=== PATIENT | female | born 1990 | race Caucasian/White ===

== ENCOUNTER 2016-07-22 15:40 | Emergency (ER) | payer MEDICAID, OTHER ==
[2016-07-22 16:11] LABS: Hematocrit 36.6 % (37.0-47.0); Hemoglobin 12.1 gm/dL (12.5-16.0); Mean Cell Volume 85.5 fl (78-100); Mean Corpuscular Hemoglobin 28.3 pg (27-31); Mean Corpuscular Hgb Conc 33.1 g/dl (32-36); Mean Platelet Volume 9.7 fl (6.0-9.5); Neutrophil # 4.6 K/mm3 (1.3-6.0); Platelet Count 273 K/mm3 (150-450); Red Blood Count 4.28 M/mm3 (4.2-5.4); Red Cell Distribution Width 13.9 % (11.5-14.0); White Blood Count 7.6 K/mm3 (4.0-10.5)
[2016-07-22 16:25] LABS: Albumin * 3.6 gm/dl (3.4-5.0); Anion Gap 14.5 mmol/L (6.8-13.8); BUN/Creatinine Ratio 11.3 (9.0-21.6); Bilirubin, Total 0.3 mg/dL (0.0-1.1); Ca. Corrected For Albumin 8.9 mg/dL (8.4-10.2); Calcium * 8.9 mg/dL (7.9-10.9); Carbon Dioxide 23.3 mmol/L (24-32.6); Potassium 3.8 mmol/L (3.4-4.6); Total Protein 7.2 gm/dL (6.2-8.2)
--- OUTSIDE RECORDS SUMMARY | 2016-07-22 16:31 | XMS REPORT | Continuity of Care Document ---
:1990 Author Organization [facility] ([facility]) Address [address] [place] [address] Phone [phone] Care Team Providers Name Role Phone Provider, No-Primary Care Primary Care Provider Unavailable Source Comments This disclosure is being made pursuant to the Care Everywhere program, applicable federal and state laws, and may not contain all informaitonavailable regarding this patient.[facility] ([facility]) Active Allergies and Adverse Reactions No Known Allergies Current Medications Prescription Sig. Disp. Refills Start Date End Date Status VIT/IRON Take by mouth daily. Active FUMARATE/FA ( PO) ferrous sulfate Take 325 mg by mouth Active (IRON) 325 mg (65 mg daily. iron) XR capsule magnesium 250 mg Take 250 mg by mouth Active tablet daily. albuterol (PROAIR Use 2 Puffs by Active HFA) 90 mcg/Actuation inhalation every 6 inhaler hours as needed. docusate 100 mg Take 1 Cap by mouth 2 60 Cap 3 01/12/2013 Active capsule times daily as needed. Indications: CONSTIPATION oxyCODONE-acetaminoph Take 1 Tab by mouth 60 Tab 0 01/12/2013 Active en 5-325 mg per every 4 hours as tablet needed. Do Not exceed 4000 mg of acetaminophen per 24 hours. Indications: PAIN ibuprofen 600 mg Take 1 Tab by mouth 60 Tab 3 01/12/2013 Active tablet every 6 hours as needed. Indications: PAIN SERTraline 50 mg Take 1 Tab by mouth 30 Tab 11 01/12/2013 Active tablet daily. Indications: MAJOR DEPRESSIVE DISORDER Active Problems Problem Noted Date with history of 01/12/2013 Hx of major depression 01/12/2013 S/P section 01/11/2013 Migraine 01/10/2013 Iron deficiency anemia, unspecified 01/10/2013 Asthma 01/10/2013 Rubella nonimmune status, delivered, current hospitalization 01/10/2013 Social History Tobacco Use Types Packs/Day Years Used Date Former Smoker Quit: 01/29/2012 Alcohol Use Drinks/Week oz/Week Comments No Last Filed Vital Signs Vital Sign Reading Time Taken Blood Pressure 114/66 01/12/2013 8:00 AM CDT Pulse 84 01/12/2013 8:00 AM CDT Temperature 36.3 C (97.3 F) 01/12/2013 8:00 AM CDT Respiratory Rate 18 01/12/2013 8:00 AM CDT Height 1.575 m (5' 2") 10/28/2012 8:18 AM CDT Weight 71 kg (156 lb 8.4 oz) 10/28/2012 8:18 AM CDT Body Mass Index 28.62 10/28/2012 8:18 AM CDT Oxygen Saturation 98% 01/10/2013 4:05 PM CDT Plan of Care Health Maintenance Due Date Last Done Comments Hepatitis B Vaccine (1 of 3 - Primary Series) 1990 HPV Vaccine (1 of 3 - Female/Unknown 3 Dose Series) 12/11/2002 Tdap Vaccine 12/11/2002 Cervical Cancer Screening 12/11/2009 Lipid Disorder Screening 12/11/2009 MMR Vaccine 12/11/2009 Td Vaccine 12/11/2009 Varicella Vaccine (1 of 2 - Adult - No Evidence of 12/11/2009 Immunity) Pneumococcal Vaccine (1 of 1 - PPSV23) 12/11/2010 Influenza Vaccine: Seasonal (#1) 10/29/2015 Results from Last 3 Months Not on file
--- OUTSIDE RECORDS SUMMARY | 2016-07-22 16:31 | XMS REPORT | Continuity of Care Document ---
:1990 Author Organization [facility] [place] [address] Care Team Providers Name Role Phone Unavailable Primary Care Provider Unavailable Source Comments This disclosure is being made pursuant to the [employer] program and maynot contain all information available regarding this patient.[facility] Active Allergies and Adverse Reactions Not on File Current Medications Be aware that medications may not be up to date as of this document. Alwaysverify current medications with the patient. Not on file Active Problems Not on file Social History Tobacco Use Types Packs/Day Years Used Date Never Assessed Plan of Care Health Maintenance Due Date Last Done Comments HPV Vaccine (9-26YO) (1 of 3 - Female/Unknown 3 Dose 12/11/2002 Series) Chlamydia Screening 2007 Retired-Tetanus Vaccine Adult 12/11/2010 Pap Smear 12/11/2012 Retired-INFLUENZA VACCINE 11/28/2014 Results from Last 3 Months Not on file
--- NOTE | 2016-07-22 16:35 | ERNOTE ---
ER Female HPI Date of Service: 07/22/16 Stated Complaint: PREG WITH PAIN Presenting Symptoms: other - , unkown gestation, Abdominal pain Time Seen by Provider: 07/22/16 16:20 Source: patient, family, RN notes reviewed Exam Limitations: no limitations Immunizations: IMMUNIZATION HX Immunizations Up to Date Yes History of Influenza Vaccine Yes Hx Pneumococcal Vaccination Yes Allergies/Adverse Reactions: Allergies No Known Allergies Allergy (Verified 07/22/16 15:54) Home Medications: HOME MEDICATIONS Albuterol Sulfate [Proair Hfa] 2 puff IH QID PRN 07/22/16 [Last Taken Unknown] Fyn011/Iron Fumarate/FA/Dss [ 19 Tablet] 1 each PO DAILY 07/22/16 [Last Taken Unknown] - History of Present Illness Narrative: 25 y/o female ambulatory to the ED for abdominal pain that began last evening. The pain is diffuse throughout the abdomen. She has a a positive home test, but does not know when her LMP was. She has had nausea but no vomiting. She denies any constipation or diarrhea. She has her first OB appointment with Dr. Connolly later in the week. Timing: Present: constant Quality: Present: moderate, aching, dullness Onset Location: Present: other - Diffuse Radiation: Present: none Activities at Onset: Present: none Prior Abdominal Problems: Present: none Sexual [place] History: Present: less than 2 months ago, single partner Associated Symptoms: Present: nausea, abdominal pain. Absent: fever/chills, diaphoresis, vomiting, dysuria, urinary frequency, low back pain Prior Treatment: Absent: recently seen Review of Systems - Review of Systems Constitutional: Absent: recent illness, fever, chills, fatigue, malaise EYE: Present: no symptoms reported ENT: Present: no symptoms reported Respiratory: Absent: shortness of breath, cough Cardiology: Absent: chest pain, syncope Gastrointestinal/Abdominal: Present: nausea, abdominal pain, eating less, drinking less. Absent: vomiting, diarrhea, constipation Genitourinary: Absent: frequency, dysuria, hematuria, other - vaginal discharge , vaginal bleeding Musculoskeletal: Absent: back pain, muscle pain Skin: Absent: rash, lesions, lumps Neurological: Absent: headache, dizziness/light-headedness Endocrine: Present: no symptoms reported Hematologic/Lymphatic: Present: no symptoms reported Psych: Present: no symptoms reported - Patient's Past Medical History Patient History - Medical: No pertinent hx Patient History - Cardiac/Respiratory: No pertinent hx Patient History - Cancer: No Hx of Cancer Patient History - Surgical Procedures: , Other Patient History - Other: None LMP (females 10-50): - Social History Living Situations: home Psych History: Hx of Anxiety, Hx of Depression Smoking Status: Former smoker Alcohol Use: none Drug Use: none - Immunizations Immunizations Up to Date: Yes Hx Pneumococcal Vaccination: Yes History of Influenza Vaccine: Yes Physical Exam - Physical Exam General Appearance: Present: wd/wn, alert, no apparent distress Respiratory: Present: no respiratory distress, normal breath sounds, no accessory muscle use, lungs clear Cardiovascular/Chest: Present: regular rate, rhythm, no murmur, normal peripheral pulses Gastrointestinal/Abdominal: Present: soft, tenderness - moderate, all 4 quadrants and suprapubic region, abnormal bowel sounds - sluggish, distended Back Exam: Present: normal inspection, no CVA tenderness Extremity Exam: Present: normal inspection, normal range of motion, no edema Neurological Exam: Present: alert, oriented, normal mood/affect, no motor/ sensory deficits Skin Exam: Present: normal color, warm/dry ED Progress - Results and Orders Patient's Lab Results:: I have reviewed the patient's lab results. - Vital Signs Patient's Vital Signs:: I have reviewed the patient's vital signs. Vital Signs: Vital Signs 07/22/16 15:47 Temperature 36.6 C Pulse Rate 90 Respiratory 16 Rate Blood Pressure 125/78 O2 Sat by Pulse 99 Oximetry - CT/Ultrasound CT/Ultrasound Narrative: FIRST TRIMESTER OB ULTRASOUND COMPARISON: NONE Grayscale images of the pelvic structures were obtained. The examination was performed using both transabdominal and transvaginal technique. The ovaries were evaluated using both color-flow and Doppler technique. Uterus: The uterus measures 11.6 x 5.0 x 8.0 cm. The myometrium appears mildly heterogeneous without a definable fibroid. There is a gestational sac identified within the fundus of the uterus. The pole, yolk sac, and heart rate (179 bpm) was identified. I do not see evidence for definable subchorionic hemorrhage. The LMP is unknown. A gestational age of nine weeks and three days is calculated using the mean gestational sac size and a gestational age of eight weeks and three days was calculated using the crown- rump length. Right ovary: The right ovary measures 2.7 x 2.8 x 1.8 cm. There is a 1.2 cm hypoechoic area within the right ovary, which may reflect a small corpus luteal cyst. Vascular flow is identified within the right ovary using color-flow and Doppler technique. Left ovary: The left ovary measures 1.8 x 1.5 x 1.1 cm. The ultrasound appearance of the left ovary is within normal limits. Vascular flow is identified within the left ovary using color-flow and Doppler technique. There is no free fluid in the cul-de-sac. IMPRESSION: 1. SINGLE LIVING INTRAUTERINE WITH GESTATIONAL AGE OF EIGHT WEEKS AND THREE DAYS BY CROWN-RUMP LENGTH. 2. PROBABLE SMALL CORPUS LUTEAL CYST WITHIN THE RIGHT OVARY, OTHERWISE NORMAL ULTRASOUND OF RIGHT OVARY. 3. UNREMARKABLE ULTRASOUND LEFT OVARY. 4. NO FREE FLUID IN THE CUL-DE-SAC. Electronically signed by Humberto Beckman M.D.. - Progress/Reassessment Chief Complaint: Abdominal Pain Progress:: Improved Plan - Plan Plan: Lab work unremarkable. Patient states she is feeling better despite having no medication here. Discussed US results. To f/u with Dr. Connolly on 07/24 as scheduled or return if symptoms worsen. Departure Clinical Impression: Abdominal pain during Qualifiers: Trimester: first trimester Qualified Code(s): O26.891 - Other specified related conditions, first trimester; R10.9 - Unspecified abdominal pain - Departure Disposition: Home Follow Up Needed Condition: Good Instructions: First Trimester of Additional Instructions: Tylenol for pain if needed See Dr. Connolly as scheduled on or return to ER if symptoms worsen before
[2016-07-22 16:44] LABS: Urine Bilirubin Negative (NEGATIVE); Urine Ketone Negative (NEGATIVE); Urine Nitrite Negative (NEGATIVE); Urine Protein Negative (NEGATIVE); Urine Specific Gravity <=1.005 SP.GR. (1.005-1.010); Urine Urobilinogen Normal (NORMAL)
[2016-07-22 17:00] LABS: Urine Appearance Clear; Urine Bacteria TRACE; Urine Blood 10 /ul (NEGATIVE); Urine Color Yellow; Urine Mucus Few - 1+; Urine RBC None Seen /hpf (0-5); Urine WBC None Seen /hpf (0-5)
[2016-07-22 21:56] VITALS: BP 119/74
== END 2016-07-22 18:55 | disposition home or self-care (01) ==
LOC: ER 15:40
DX: O26.891 Other specified pregnancy related conditions, first trimester (principal); R10.9 Unspecified abdominal pain; Z33.1 Pregnant state, incidental; Z3A.08 8 weeks gestation of pregnancy

== ENCOUNTER 2017-02-24 04:54 | Inpatient (IN) | payer MEDICAID, OTHER ==
[~2017-02-24 04:54] MED LIST: OXYTOCIN 20 UNITS in RINGER'S SOLUTION,LACTATED 1,000 ML IV ONE; RINGER'S SOLUTION,LACTATED 1,000 ML IV PRN; ceFAZolin SODIUM/DEXTROSE,ISO 2 GM/50 ML BAG IV ONE
[2017-02-24] MEDS ORDERED: CITRIC ACID/SODIUM CITRATE 60 ML BTL PO ONE (06:39)
[2017-02-24] MEDS ORDERED: ceFAZolin SODIUM/DEXTROSE,ISO 2 GM/50 ML BAG IV ONE (07:00)
[2017-02-24] MEDS ORDERED: RINGER'S SOLUTION,LACTATED 1,000 ML IV ONE (07:50)
--- NOTE | 2017-02-24 09:32 | OR ---
Operative Report - Dictated Report Narrative: Indication: 26-year-old 2 para 1000 with prior section presents for repeat low transverse section. status: Planned Pre Operative Diagnosis: 39-3/7 week intrauterine , prior section Post Operative Diagnosis: Same. Procedure: Repeat low transverse section. Surgeon: Toney Connolly DO Environmental Technical Officer: OR Staff Anesthesia: Spinal, TAP block Estimated Blood Loss: 200 mL Urine Output: 200 mL clear urine Fluids Replacement: 1400 mL Drains: Beltran to gravity Surgical Complications: None Specimens: Placenta to freezer Findings: Male born at 0822 on 02/24/2016 with Apgars 8 and 9, weighing 3332 g in cephalic presentation. Normal uterus, tubes, ovaries Technique: The patient was taken to the operating room and placed in dorsal supine position with a left lateral tilt. After adequate spinal anesthesia, beltran catheter inserted, SCDs placed, and 2 g of Ancef given preoperatively, the abdominal cavity was entered using sharp and blunt dissection. Two rolled laps were placed in the pericolic gutters on either side of the uterus. A transverse incision was made in the lower uterine segment and extended laterally and upwardly with digital traction. Clear fluid was noted upon amniotomy. The infant was delivered easily. The cord was clamped and cut and was handed off to awaiting rehab rn. The placenta was allowed to deliver spontaneously. The uterus was cleared of clot and debris. Uterine incision was closed with 0 Vicryl using a running stitch. A second imbricating layer was placed. Excellent hemostasis was noted. The rolled laps were removed from the abdominal cavitiy. The peritoneum was closed with a running 3- 0 Monocryl. The same suture was used to approximate the rectus and pyramidalis muscles. The fascia was closed with a running 0 Vicryl. The subcutaneous layer was closed with a running 3-0 Monocryl. The same suture was used to approximate the subdermal layer. The skin was closed with a running 4-0 Monocryl and Dermabond. Sponge, lap, needle, and instrument count were correct x 2. Disposition: To post anesthesia care unit in good condition
[2017-02-24] MEDS ORDERED: ONDANSETRON HCL/PF 2 MG/ML VIAL IV PRN (09:34)
[2017-02-24] MEDS ORDERED: BISACODYL 10 MG SUPP.RECT RC PRN (09:34)
[2017-02-24] MEDS ORDERED: SIMETHICONE 80 MG TAB.CHEW PO PRN (09:34)
[2017-02-24] MEDS ORDERED: SENNOSIDES 8.6 MG TABLET PO PRN (09:34)
[2017-02-24] MEDS ORDERED: ALBUTEROL SULFATE 2.5 MG/0.5 ML VIAL.NEB IH PRN (09:34)
--- NOTE | 2017-02-24 09:36 | OR ---
Anesthesia Procedure Note - Anesthesia Procedure Note Narrative: Vital Signs - Last Taken Temp 37.0 C 02/24/17 09:29 Pulse 62 02/24/17 09:29 Resp 17 02/24/17 09:29 BP 141/81 02/24/17 09:29 Pulse Ox 98 02/24/17 09:29 O2 Oxygen Delivery Method Room Air 02/24/17 09:33 ANESTHESIA PROCEDURE NOTE Date of procedure: 02/24/2017. Time of procedure: 12 07. Performed by: Ricki Charles CRNA Android Programmer: Rose Edwards RN . Preprocedure diagnosis: Repeat . Need for postoperative analgesia.. Post procedure diagnosis: Same. Procedure: Bilateral ultrasound-guided Block Indications: Postoperative analgesia status post a section. Findings: Patient placed in a supine position in the PACU. Patient's right abdominal wall was prepped with ChloraPrep. Ultrasound was utilized to identify fascial layer between the interior oblique and transabdominal muscles. A 22-gauge 2 inch Stimuplex regional block needle was utilized. After needle placement was confirmed, 20 mL of 0.25% Marcaine with epinephrine 1 and 20,000 was injected. Adequate spread of local anesthetic was noted. Procedure was then repeated on patient's left side. EBL: Minimal. Fluids: N/A. Specimen: N/A. Post procedure condition: The patient tolerated the procedure well. No complications were noted. Thank you for this consultation Ricki Charles CRNA
[2017-02-24] MEDS: oxyCODONE HCL/ACETAMINOPHEN 1 TAB TABLET PO PRN ×3 (10:08→18:24)
[2017-02-24] MEDS: IBUPROFEN 800 MG TABLET PO PRN ×2 (10:09→17:20)
[2017-02-24] MEDS: ENOXAPARIN SODIUM 40 MG/0.4 ML SYRG SC SCH (17:21)
[2017-02-24] MEDS: busPIRone HCL 5 MG TABLET PO SCH (21:51)
[2017-02-24] MEDS: DOCUSATE SODIUM 100 MG CAPSULE PO SCH (21:51)
[2017-02-25] MEDS: oxyCODONE HCL/ACETAMINOPHEN 1 TAB TABLET PO PRN ×5 (01:02→21:57)
[2017-02-25] MEDS: IBUPROFEN 800 MG TABLET PO PRN ×3 (01:03→16:53)
[2017-02-25] MEDS: busPIRone HCL 5 MG TABLET PO SCH ×2 (09:11→21:56)
[2017-02-25] MEDS: PRENATAL VITS96/IRON FUM/FOLIC 1 TAB TABLET PO SCH (09:11)
[2017-02-25] MEDS: DOCUSATE SODIUM 100 MG CAPSULE PO SCH ×2 (09:11→21:57)
--- NOTE | 2017-02-25 12:28 | PN ---
Subjective - Date and Time Seen Date: 02/25/17 Time: 12:25 Objective - Vitals Vitals: Last Vital Signs Temp 36.6 C 02/25/17 07:49 Pulse 75 02/25/17 07:49 Resp 12 02/25/17 07:49 BP 127/77 02/25/17 07:49 Pulse Ox 98 02/25/17 07:49 Patient denies complaints. Tolerating regular diet. Ambulating without difficulty. Pain well controlled. Lochia wnl. Abdomen - soft, appropriately tender Incision - clean, dry, intact Uterus - firm, at umbilicus -1 No calf tenderness Impression: Post op day #1 s/p repeat section. Asthma-stable. Migraines-stable. Borderline personality disorder-stable. Bipolar disorder- stable. Plan: Continue routine post-operative/ care Cauti Physician Documentation - Urinary Catheter Management Urethral ([place]) Date of Insertion: 02/24/17 Time of Insertion: 08:00
[2017-02-25] MEDS: ENOXAPARIN SODIUM 40 MG/0.4 ML SYRG SC SCH (16:57)
[2017-02-26] MEDS: oxyCODONE HCL/ACETAMINOPHEN 1 TAB TABLET PO PRN ×4 (04:55→21:43)
[2017-02-26] MEDS: IBUPROFEN 800 MG TABLET PO PRN ×3 (04:56→21:43)
--- NOTE | 2017-02-26 09:43 | PN ---
Rowan Note - Interim Narrative: 02/26/17 09:41 Subjective: Patient is doing well, ambulating, voiding, tolerating by mouth. Minimal lochia. Pain controlled with medication. Objective: Vital signs stable General: no acute distress Abdomen: Soft, nondistended, diffusely tender, fundus firm Skin: Incision is clean, dry and intact Extremities: Minimal edema, nontender Assessment and plan: Postoperative day 2 Feeding: Breast pumping Pain: Controlled with by mouth medication Psych issues and depression and PTSD: The patient requesting to restart her medication, we'll discuss with bridal sales consultant and psych Routine postoperative care.
[2017-02-26] MEDS: PRENATAL VITS96/IRON FUM/FOLIC 1 TAB TABLET PO SCH (09:56)
[2017-02-26] MEDS: DOCUSATE SODIUM 100 MG CAPSULE PO SCH ×2 (09:57→21:43)
[2017-02-26] MEDS: busPIRone HCL 5 MG TABLET PO SCH ×2 (09:58→21:43)
--- NOTE | 2017-02-26 15:34 | PN ---
Progess Note - Interim Narrative: 02/26/17 15:33 I discussed the pt with Kendell Vargas who will come and see the patient tomorrow.
[2017-02-26] MEDS: ENOXAPARIN SODIUM 40 MG/0.4 ML SYRG SC SCH (16:38)
[2017-02-27] MEDS: IBUPROFEN 800 MG TABLET PO PRN (04:59)
[2017-02-27] MEDS: oxyCODONE HCL/ACETAMINOPHEN 1 TAB TABLET PO PRN ×2 (04:59→09:19)
[2017-02-27 08:13] VITALS: BP 115/70
[2017-02-27] MEDS: DOCUSATE SODIUM 100 MG CAPSULE PO SCH (09:19)
[2017-02-27] MEDS: busPIRone HCL 5 MG TABLET PO SCH (09:19)
[2017-02-27] MEDS: PRENATAL VITS96/IRON FUM/FOLIC 1 TAB TABLET PO SCH (09:19)
--- NOTE | 2017-02-27 12:29 | PN ---
Progess Note - Interim Narrative: 02/27/17 12:28 Subjective: Patient is doing well, ambulating, voiding, tolerating by mouth. Minimal lochia. Pain controlled with medication. Objective: Vital signs stable General: no acute distress Abdomen: Soft, nondistended, diffusely tender, fundus firm Skin: Incision is clean, dry and intact Extremities: Minimal edema, nontender Assessment and plan: Postoperative day 3 Feeding: Breast pumping Pain: Controlled with by mouth medication Psych issues and depression and PTSD: psych consult, restarting prozac and FU scheduled Routine postoperative care.
--- NOTE | 2017-02-27 13:00 | PN ---
Subjective - Date and Time Seen Date: 02/27/17 Time: 11:45 Subjective Narrative: Patient states that she was feeling overwhelmed yesterday but is better today. Objective Objective Narrative: Patient previously seen by psychiatry. Has a history of borderline personality disorder, depression vs. bipolar disorder and PTSD. PTSD stems from loss of an infant daughter following term delivery several years ago. Is very anxious about this and antepartum period. Feels like she is able to care for infant adequately. States that boyfriend is supportive. Boyfriend is here today, interacting with appropriately, changing diaper. Patient is bonding well with baby, has been pumping breast milk for feedings and . Has been on antidepressants in the past and Buspar during which she feels has been helpful for anxiety. Denies ant suicidal or homicidal thought. Anxiety is most problematic symptom at this time, some tearfulness but denies feelings of hopelessness or worthlessness. Discussed risk vs. benefit of medications while . Will continue on Buspar and add Prozac 20 mg daily. Discussed R/B/SE of medications. Written instructions provided. Patient has an appointment to see me in March. Number given for psychiatry office should she have any issues or concerns prior to appointment. - Review of Systems Generalized/Overall Review: Reports: No Symptoms Reported Neurological: Reports: Anxiety, Emotional Problems - Vitals Vitals: Last Vital Signs Temp 36.8 C 02/27/17 07:51 Pulse 73 02/27/17 07:51 Resp 16 02/27/17 07:51 BP 115/70 02/27/17 07:51 Pulse Ox 98 02/27/17 07:51 - Exam Constitutional: Present: Alert, Oriented x3, Cooperative, No distress Thoughts: Present: normal thought pattern, no apparent hallucination, normal mood /affect Cauti Physician Documentation - Urinary Catheter Management Urethral ([place]) Date of Insertion: 02/24/17 Time of Insertion: 08:00 Assessment/Plan Plan Narrative: Follow up in outpatient psychiatry.
== END 2017-02-27 13:30 | disposition home or self-care (01) | DRG 766 ==
LOC: OB 04:54
PROVIDERS: ADMIT Obstetrics & Gynecology; ATTEND Obstetrics & Gynecology
PROC: 4A1HXCZ Monitoring of Products of Conception, Cardiac Rate, External Approach (ICD-10-PCS; 2017-02-24)
PROC: 10D00Z1 Extraction of Products of Conception, Low, Open Approach (ICD-10-PCS; principal; 2017-02-24 08:00)
DX: O34.211 Maternal care for low transverse scar from previous cesarean delivery (principal); J45.20 Mild intermittent asthma, uncomplicated; F31.9 Bipolar disorder, unspecified; Z3A.39 39 weeks gestation of pregnancy; Z37.0 Single live birth

== ENCOUNTER 2018-03-12 04:39 | Inpatient (IN) ==
[2018-03-12] MEDS ORDERED: ceFAZolin SODIUM/DEXTROSE,ISO 2 GM/50 ML BAG IV ONE (06:20)
[2018-03-12] MEDS ORDERED: OXYTOCIN 20 UNITS in RINGER'S SOLUTION,LACTATED 1,000 ML IV ONE (06:20)
[2018-03-12] MEDS ORDERED: RINGER'S SOLUTION,LACTATED 1,000 ML IV PRN ×2 (06:20)
[2018-03-12 07:24] LABS: Cocaine Ur Negative (NEGATIVE); Urine Benzodiazepines Negative (NEGATIVE); Urine Opiates Negative (NEGATIVE); Urine PCP Negative (NEGATIVE); Urine THC Negative (NEGATIVE)
[2018-03-12 07:38] LABS: Urine Barbiturate Positive (NEGATIVE)
--- NOTE | 2018-03-12 07:38 | ANES ---
Anesthesia Pre Procedure Eval Vitals/Labs: Last Vital Signs Temp 36.5 C 03/12/18 06:35 Pulse 77 03/12/18 06:35 Resp 16 03/12/18 06:35 BP 119/69 03/12/18 06:35 Pulse Ox 98 03/12/18 06:35 HOME MEDICATIONS Hhe853/Iron Fumarate/FA/Dss [ 19 Tablet] 1 ea PO DAILY 07/22/16 [Last Taken 02/23/17] acetaminophen 325 mg capsule 325 mg PO Q6H PRN 10/07/17 [Last Taken Unknown] ferrous sulfate 325 mg (65 mg iron) tablet 325 mg PO DAILY tab 10/07/17 [Last Taken Unknown] magnesium 200 mg tablet 400 mg PO DAILY tab 10/15/17 [Last Taken Unknown] calcium carbonate 200 mg calcium (500 mg) chewable tablet 400 mg PO 5XD tab 02/23/18 [Last Taken Unknown] albuterol sulfate HFA 90 mcg/actuation aerosol inhaler 2 puff IH QID PRN #18 g 02/24/18 [Last Taken Unknown] Allergies/Adverse Reactions: Allergies Allergy/AdvReac Type Severity Reaction Status Date / Time house dust Allergy Unknown Difficulty Verified 03/12/18 05:27 breathing mold Allergy Unknown difficulty Verified 03/12/18 05:27 breathing grass pollen Allergy difficulty Verified 03/12/18 05:27 breathing No Known Drug Allergies Allergy Verified 03/12/18 05:27 tree and shrub pollen Allergy difficulty Verified 03/12/18 05:27 breathing weed pollen Allergy difficulty Verified 03/12/18 05:27 breathing - Planned Procedure Planned Procedure: LABIOR Medication List Reviewed:: Yes Allergies Verified: Yes Medical History (Last Reviewed 03/12/18 @ 07:36 by Apolinar Charles CRNA) Anemia Onset Date: ~09/2012 w/ 09/2012, 07/2017 Anxiety Onset Date: ~2012 Body piercing Cervical dysplasia Onset Date: ~2017 Migraine Onset Date: ~2012 w/ Posttraumatic stress disorder Onset Date: ~05/2016 Previous section complicating Onset Date: 08/11/17 Short interval between pregnancies affecting , antepartum Onset Date: 08/11/17 Tattoos Asthma Onset Date: Unknown Multiple hospitalizations with the most recent being 2010. Pt currently has an albuterol inhaler Bipolar disorder Onset Date: ~2013 Tx'd w/Lamotrigine. Has not been on it since later in 2013. Borderline personality disorder Onset Date: ~04/2016 Depression Onset Date: ~2012 Chlamydia infection Onset Date: 05/18/12 tx'd w/erythromycin 500mg Trichomonas vaginalis (TV) infection Onset Date: 01/22/15 Surgical History (Last Reviewed 03/12/18 @ 07:36 by Apolinar Charles CRNA) History of colposcopy Onset Date: 09/14/17 Elbow fracture, right Onset Date: ~2008 repaired- shattered elbow History of facial surgery Onset Date: ~1993 repaired left side of face d/t dog bite Previous section Onset Date: 01/10/13 01/10/13, 02/24/17 Family History (Last Reviewed 03/12/18 @ 07:36 by Apolinar Charles CRNA) Mother Cervical cancer Father Alive and well Brother Asthma 2 w/ Asthma Daughter , Meconium baby. 01/09/13-01/11/13 No problems noted. Grandfather , Maternal Lung cancer Grandmother , Maternal Cancer Bladder & Liver Hepatitis Hep C Bipolar disorder RA (rheumatoid arthritis) Grandfather , Paternal Myocardial infarction Grandmother , Paternal MVA (motor vehicle accident) - Family Anesthesia History Family History:: no untoward family reactions to anesthesia - Airway/Neck/Teeth Within Normal Limits:: Yes Teeth Condition: intact Mallampatti Score: 1 Thyromental (T-M) distance: > 6 cm Mandibulo Hyoid distance: > 3 cm - Respiratory Respiratory History: asthma Respiratory Physical: lungs clear Smoking Status: Former smoker Sleep Apnea currently treated: No Sleep Apnea by current assessment: No - Cardiovascular Tolerate Activity: Good Heart Sounds: S1 & S2, Regular - Anesthesia Assessment and Plan ASA Class: PS, II Anesthesia Type Plan: Spinal - Bilat TAP block for postop analgesia
--- NOTE | 2018-03-12 07:40 | HP ---
Chief Complaint - Chief Complaint Date of Service: 03/12/18 Time of Service: 07:29 Chief Complaint: labor with prior c/s History of Present Illness: 27 yo at 38 3/7 wks with prior c/s x 2 presents to L&D complaining of painful contractions since around 0130 this am which have become increasingly painful and more frequent. She has made cervical change and we will therefore proceed with c/s. This complicated by anemia, asthma, prior c/s, DPS, anxiety, bipolar d/o, PTSD, and due to cord accident. RH postive RNI GBS negative Medical History (Last Reviewed 03/12/18 @ 07:33 by Anton Connolly DO) Anemia Onset Date: ~09/2012 w/ 09/2012, 07/2017 Anxiety Onset Date: ~2012 Body piercing Cervical dysplasia Onset Date: ~2017 Migraine Onset Date: ~2012 w/ Posttraumatic stress disorder Onset Date: ~05/2016 Previous section complicating Onset Date: 08/11/17 Short interval between pregnancies affecting , antepartum Onset Date: 08/11/17 Tattoos Asthma Onset Date: Unknown Multiple hospitalizations with the most recent being 2010. Pt currently has an albuterol inhaler Bipolar disorder Onset Date: ~2013 Tx'd w/Lamotrigine. Has not been on it since later in 2013. Borderline personality disorder Onset Date: ~04/2016 Depression Onset Date: ~2012 Chlamydia infection Onset Date: 05/18/12 tx'd w/erythromycin 500mg Trichomonas vaginalis (TV) infection Onset Date: 01/22/15 Surgical History: Surgical History (Last Reviewed 03/12/18 @ 07:33 by Anton Connolly DO) History of colposcopy Onset Date: 09/14/17 Elbow fracture, right Onset Date: ~2008 repaired- shattered elbow History of facial surgery Onset Date: ~1993 repaired left side of face d/t dog bite Previous section Onset Date: 01/10/13 01/10/13, 02/24/17 Family History: Family History (Last Reviewed 03/12/18 @ 07:34 by Anton Connolly DO) Mother Cervical cancer Father Alive and well Brother Asthma 2 w/ Asthma Daughter , Meconium baby. 01/09/13-10/15/13 No problems noted. Grandfather , Maternal Lung cancer Grandmother , Maternal Cancer Bladder & Liver Hepatitis Hep C Bipolar disorder RA (rheumatoid arthritis) Grandfather , Paternal Myocardial infarction Grandmother , Paternal MVA (motor vehicle accident) Social History: Preferred Language Gren[place] Smoking Status Former smoker Psych History Hx of Anxiety,Hx of Depression (Last Updated 03/08/18 @ 10:40 by Anton Connolly DO) No Social History Section defined Review Of Systems (GEN) - Review of Systems Generalized/Overall Review: Present: No Symptoms Reported EENTM: Present: No Symptoms Reported Respiratory: Present: No Symptoms Reported Cardiac: Present: No Symptoms Reported Abdominal: Present: Other - contractions Genitourinary: Present: Other - vaginal pressure Musculoskeletal: Present: No Symptoms Reported Neurological: Present: No Symptoms Reported Skin: Present: No Symptoms Reported Endocrine: Present: No Symptoms Reported Immunizations: IMMUNIZATION HX Immunizations Up to Date Yes History of Influenza Vaccine Yes Hx Pneumococcal Vaccination Yes Allergies/Adverse Reactions: Allergies Allergy/AdvReac Type Severity Reaction Status Date / Time house dust Allergy Unknown Difficulty Verified 03/12/18 05:27 breathing mold Allergy Unknown difficulty Verified 03/12/18 05:27 breathing grass pollen Allergy difficulty Verified 03/12/18 05:27 breathing No Known Drug Allergies Allergy Verified 03/12/18 05:27 tree and shrub pollen Allergy difficulty Verified 03/12/18 05:27 breathing weed pollen Allergy difficulty Verified 03/12/18 05:27 breathing Home Medications: HOME MEDICATIONS [id number]/Iron Fumarate/FA/Dss [ 19 Tablet] 1 ea PO DAILY 07/22/16 [Last Taken 02/23/17] acetaminophen 325 mg capsule 325 mg PO Q6H PRN 10/07/17 [Last Taken Unknown] ferrous sulfate 325 mg (65 mg iron) tablet 325 mg PO DAILY tab 10/07/17 [Last Taken Unknown] magnesium 200 mg tablet 400 mg PO DAILY tab 10/15/17 [Last Taken Unknown] calcium carbonate 200 mg calcium (500 mg) chewable tablet 400 mg PO 5XD tab 02/23/18 [Last Taken Unknown] albuterol sulfate HFA 90 mcg/actuation aerosol inhaler 2 puff IH QID PRN #18 g 02/24/18 [Last Taken Unknown] Exam - Exam Vital Signs: Vital Signs - Last Taken Temp 36.5 C 03/12/18 06:35 Pulse 77 03/12/18 06:35 Resp 16 03/12/18 06:35 BP 119/69 03/12/18 06:35 Pulse Ox 98 03/12/18 06:35 Constitutional: Present: Alert, Oriented x3, Cooperative ENT Exam: Present: hearing grossly normal Breasts: Present: Exam deferred Respiratory: Present: lungs clear, no respiratory distress Cardiovascular/Chest: Present: regular rate, rhythm Abdomen: Present: soft, no rebound tenderness, other - gravid Extremity: Present: no pedal edema, no calf tenderness Skin Exam: Present: normal color, warm/dry, no cyanosis Neurologic: Present: alert, normal mood/affect, oriented x 3 Appearance: Present: appropriate appearance, appropriate insight Eye contact: Present: cooperative, good eye contact, normal speech Thoughts: Present: normal thought pattern Assessment/Plan - Assessment/Plan (1) Labor established Assessment: Admit for repeat c/s with b/l salpingectiomy. Problem: Acute (2) Previous delivery affecting Problem: Acute (3) Asthma Problem: Acute (4) Anemia Problem: Acute (5) Encounter for sterilization Problem: Acute (6) Bipolar disorder in remission Problem: Acute (7) Post-traumatic stress disorder Problem: Acute (8) History of Problem: Acute (9) Rubella non-immune status, antepartum Problem: Acute
--- NOTE | 2018-03-12 09:18 | OR ---
Operative Report - Dictated Report Narrative: Indication: 27-year-old 3 para 2010 at 38-3/7 weeks presents to labor and delivery in labor with prior section 2. Patient desires permanent sterilization via bilateral salpingectomy. status: Planned Pre Operative Diagnosis: 38-3/7 week intrauterine . Prior section 2. Labor. Post Operative Diagnosis: Same. Procedure: Repeat low transverse section. Bilateral salpingectomy. Surgeon: Toney Connolly DO Shaper And Presser: OR Staff Anesthesia: Spinal, TAP block Estimated Blood Loss: 150 mL Urine Output: 100 mL clear urine Fluids Replacement: 1500 mL Drains: Beltran to gravity Surgical Complications: None Specimens: Placenta to freezer, fallopian tubes to pathology for gross identification. Findings: Female born at 0810 on 03/12/2017 with Apgars 8, 8, and 9, weighing 2459 g in cephalic presentation. Normal uterus, tubes, ovaries Technique: The patient was taken to the operating room and placed in dorsal supine position with a left lateral tilt. After adequate spinal anesthesia, beltran catheter inserted, SCDs placed, and 2 g of Ancef given preoperatively, the abdominal cavity was entered using sharp and blunt dissection. A transverse incision was made in the lower uterine segment and extended laterally and upwardly with digital traction. Clear fluid was noted upon amniotomy. The infant was delivered easily. The cord was clamped and cut and was handed off to awaiting web marketing intern. The placenta was allowed to deliver spontaneously. The uterus was cleared of clot and debris. Uterine incision was closed with 0 Vicryl using a running stitch. A second imbricating layer was placed. Excellent hemostasis was noted. The right fallopian tube was identified and followed out to the fimbriated end. The mesosalpinx and proximal end of the tube, 1 cm from the cornual region, were coagulated, transected, and the tube was sent to pathology. The exact same was done on the patient's left side. The peritoneum was closed with a running 3-0 Monocryl. The same suture was used to approximate the rectus and pyramidalis muscles. The fascia was closed with a running 0 Vicryl. The subcutaneous layer was closed with a running 3-0 Monocryl. The same suture was used to approximate the subdermal layer. The skin was closed with a running 4-0 Monocryl and Dermabond. Sponge, lap, needle, and instrument count were correct x 2. Disposition: To post anesthesia care unit in good condition
--- NOTE | 2018-03-12 09:37 | ANES ---
Post Anesthesia Discharge - Transfer of Care Transfer of Care handoff given to nurse: Yes - Discharge from PACU Discharge from PACU when meets criteria: Yes
[2018-03-12] MEDS ORDERED: SENNOSIDES 8.6 MG TABLET PO PRN (10:22)
[2018-03-12] MEDS ORDERED: SIMETHICONE 80 MG TAB.CHEW PO PRN (10:22)
[2018-03-12] MEDS ORDERED: ONDANSETRON HCL/PF 2 MG/ML VIAL IV PRN (10:22)
[2018-03-12] MEDS ORDERED: BISACODYL 10 MG SUPP.RECT RC PRN (10:22)
[2018-03-12] MEDS ORDERED: diphenhydrAMINE HCL 25 MG CAPSULE PO PRN (10:22)
[2018-03-12] MEDS: oxyCODONE HCL/ACETAMINOPHEN 1 TAB TABLET PO PRN ×4 (10:32→21:39)
[2018-03-12] MEDS: IBUPROFEN 800 MG TABLET PO PRN ×2 (10:32→17:20)
--- NOTE | 2018-03-12 12:39 | ANES ---
Post Anesthesia Assessment - Vital Signs Vitals: Last Vital Signs Temp 36.5 C 03/12/18 11:33 Pulse 85 03/12/18 12:01 Resp 18 03/12/18 12:01 BP 116/63 03/12/18 12:01 Pulse Ox 98 03/12/18 12:01 Airway Patency: Normal - Mental Status Level Of Consciousness: Awake - Pain Level Pain Score: 2 - N/V Assessment Nausea/Vomiting Presence: None
--- NOTE | 2018-03-12 14:55 | PN ---
Progess Note - Interim Date: 03/12/18 Time: 14:55 History for MU Definition: * The number of deliveries resulting in a live the patient experienced prior to current hospitalization * The previous delivery of live twins or any live multiple gestation is considered one live event. *If primagravida or nulliparous is documented select zero for the number of previous live births. Live Events: 2
[2018-03-12] MEDS: ENOXAPARIN SODIUM 40 MG/0.4 ML SYRG SC SCH (17:20)
--- NOTE | 2018-03-12 19:04 | ANES ---
Anesthesia Procedure Note Procedure Note: ANESTHESIA PROCEDURE NOTE Date of procedure:[]. 03/12/2018 Time of procedure:[]. 12 27 Performed by: Ricki Charles CRNA Phonograph Mechanic: [] None . Preprocedure diagnosis: []. Status post section. Desire for postoperative analgesia Post procedure diagnosis: Same. Procedure:[] Ultrasound-guided bilateral tap block Indications: []. Postoperative analgesia Findings: [] Patient brought to the PACU and placed in a supine position. Patient's right abdominal wall was prepped with ChloraPrep. Ultrasound was utilized to identify the fascial layer between the internal oblique and trans- abdominus muscles. A 20-gauge 4 inch regional block needle was advanced under ultrasound guidance until the tip of needle was placed just posterior to fascial layer. 20 mL of 0.25% Marcaine with epinephrine 1-200,00 was injected with adequate spread of local anesthesia noted. Procedure was then repeated on patient's left side. EBL: Minimal. Fluids: N/A. Specimen: N/A. Post procedure condition: The patient tolerated the procedure well. No complications were noted. Thank you for this consultation Ricki Charles CRNA
[2018-03-12] MEDS: DOCUSATE SODIUM 100 MG CAPSULE PO SCH (20:51)
[2018-03-13] MEDS: oxyCODONE HCL/ACETAMINOPHEN 1 TAB TABLET PO PRN ×5 (00:40→23:05)
[2018-03-13] MEDS: IBUPROFEN 800 MG TABLET PO PRN ×4 (00:41→23:04)
[2018-03-13] MEDS: DOCUSATE SODIUM 100 MG CAPSULE PO SCH ×2 (08:32→23:01)
--- NOTE | 2018-03-13 10:24 | PN ---
Subjective - Date and Time Seen Date: 03/13/18 Time: 10:23 Objective - Vitals Vitals: Last Vital Signs Temp 36.6 C 03/13/18 07:00 Pulse 73 03/13/18 07:00 Resp 16 03/13/18 07:00 BP 122/78 03/13/18 07:00 Pulse Ox 98 03/13/18 07:00 Patient denies complaints. Tolerating regular diet. Ambulating without difficulty. Pain well controlled. Lochia wnl. Abdomen - soft, appropriately tender Incision - clean, dry, intact Uterus - firm, at umbilicus -1 No calf tenderness Impression: Post op day #1 s/p repeat section with bilateral salpingectomy. Bipolar disorder, borderline personality disorder, posttraumatic stress disorder, asthma - all stable at present Plan: Continue routine post-operative/ care Cauti Physician Documentation - Urinary Catheter Management Urethral ([place]) Date of Insertion: 03/12/18 Time of Insertion: 07:55 Assessment/Plan - Problems/Diagnosis (1) Labor established Problem: Acute (2) Previous delivery affecting Problem: Acute (3) Asthma Problem: Acute (4) Anemia Problem: Acute (5) Encounter for sterilization Problem: Acute (6) Bipolar disorder in remission Problem: Acute (7) Post-traumatic stress disorder Problem: Acute (8) History of Problem: Acute (9) Rubella non-immune status, antepartum Problem: Acute
[2018-03-13] MEDS: ENOXAPARIN SODIUM 40 MG/0.4 ML SYRG SC SCH (16:23)
[2018-03-14] MEDS: oxyCODONE HCL/ACETAMINOPHEN 1 TAB TABLET PO PRN ×4 (07:10→22:35)
[2018-03-14] MEDS: IBUPROFEN 800 MG TABLET PO PRN ×3 (07:10→22:35)
--- NOTE | 2018-03-14 08:56 | PN ---
Subjective - Date and Time Seen Date: 03/14/18 Time: 08:56 Objective - Vitals Vitals: Last Vital Signs Temp 36.2 C 03/14/18 06:00 Pulse 69 03/14/18 06:00 Resp 16 03/14/18 06:00 BP 105/72 03/14/18 06:00 Pulse Ox 95 03/14/18 06:00 Patient denies complaints. Ambulating well. Tolerating regular diet. Pain well controlled. Lochia wnl. Abdomen - soft, appropriately tender Incision - clean, dry, intact Uterus - firm, at umbilicus -2 No calf tenderness Impression: Post op day #2 s/p repeat section with bilateral salpingectomy. Plan: Continue routine post-operative/ care Cauti Physician Documentation - Urinary Catheter Management Urethral ([place]) Date of Insertion: 03/12/18 Time of Insertion: 07:55 Assessment/Plan - Problems/Diagnosis (1) Labor established Problem: Acute (2) Previous delivery affecting Problem: Acute (3) Asthma Problem: Acute (4) Anemia Problem: Acute (5) Encounter for sterilization Problem: Acute (6) Bipolar disorder in remission Problem: Acute (7) Post-traumatic stress disorder Problem: Acute (8) History of Problem: Acute (9) Rubella non-immune status, antepartum Problem: Acute
[2018-03-14] MEDS: DOCUSATE SODIUM 100 MG CAPSULE PO SCH ×2 (10:53→20:28)
[2018-03-14] MEDS: ENOXAPARIN SODIUM 40 MG/0.4 ML SYRG SC SCH (18:02)
--- NOTE | 2018-03-15 05:33 | PN ---
Subjective - Date and Time Seen Date: 03/15/18 Time: 05:32 Objective - Vitals Vitals: Last Vital Signs Temp 36.5 C 03/15/18 00:30 Pulse 86 03/15/18 00:30 Resp 20 03/15/18 00:30 BP 110/72 03/15/18 00:30 Pulse Ox 97 03/15/18 00:30 Patient denies complaints. Ambulating without difficulty. Tolerating regular diet. Pain well controlled. Lochia wnl. Abdomen - soft, appropriately tender Incision - clean, dry, intact Uterus - firm, at umbilicus -3 No calf tenderness Impression: Post op day #3 s/p repeat section. Bilateral salpingectomy Plan: Routine discharge instructions Cauti Physician Documentation - Urinary Catheter Management Urethral ([place]) Date of Insertion: 03/12/18 Time of Insertion: 07:55 Assessment/Plan - Problems/Diagnosis (1) Labor established Problem: Acute (2) Previous delivery affecting Problem: Acute (3) Asthma Problem: Acute (4) Anemia Problem: Acute (5) Encounter for sterilization Problem: Acute (6) Bipolar disorder in remission Problem: Acute (7) Post-traumatic stress disorder Problem: Acute (8) History of Problem: Acute (9) Rubella non-immune status, antepartum Problem: Acute
[2018-03-15] MEDS: oxyCODONE HCL/ACETAMINOPHEN 1 TAB TABLET PO PRN ×2 (05:48→15:41)
[2018-03-15] MEDS: IBUPROFEN 800 MG TABLET PO PRN ×2 (05:48→15:41)
[2018-03-15 07:30] VITALS: BP 97/57
[2018-03-15] MEDS: DOCUSATE SODIUM 100 MG CAPSULE PO SCH (09:30)
== END 2018-03-15 16:50 | disposition home or self-care (01) | DRG 785 ==
LOC: OBCLINIC 04:39 → OB 06:26 → MS 17:34
PROVIDERS: ADMIT Obstetrics & Gynecology; ATTEND Obstetrics & Gynecology
CPT/HCPCS: 59025; 80307; 88302; G0479